=== PATIENT | male | born 1975 | race Caucasian/White ===

== ENCOUNTER → 2024-02-29 | Outpatient (CLI) | payer BC ==
--- NOTE | 2024-03-01 08:31 | HMCSR ---
APPROVED REPORT EXAM: Two-dimensional and M-mode echocardiogram with Doppler and color Doppler. INDICATION ICD: R01.1 Cardiac murmur, unspecified 2D Dimensions RVDd3.7 cmLVEF(%)60.3 (>50%)LVED Vol(simp.)129.0 mL IVSd1.0 (0.7-1.1cm)FS(%)32 %LVES Vol(simp.)58.0 mL LVDd4.5 (3.8-5.6cm)Ao Root(2D)3.0 (2.0-3.7cm)LVEF(%, simp.)55 % PWd1.0 (0.7-1.1cm)LVOT diam2.3 (1.8-2.4cm)LA ESV INDEX (BP)30.80 mL/m2 LVDs3.0 (2.5-4.0cm)IVC diam2.3 cm Aortic Valve AoV Vmax1.4 m/Tay Peak GR7.5 mmHgLVOT Vmax1.2 m/s AoV VTI0.3 mAo Mean GR3.9 mmHgLVOT VTI0.25 m MADELYN (VMAX)3.4 cm2AVA (VTI) 3.4 cm2 Mitral Valve MV E Vmax78.4 cm/sDECEL Cghc443 ms MV A Vmax56.1 cm/sP 1/2 T50 ms E/A ratio1.4MVA (PHT)4.4 cm2 TDI E/E' Medial8.0E/E' Lateral7.2 Pulmonary Valve PV Vmax1.0 m/sPV VTI0.37 mPV Mean GR5 mmHg PV Peak GR9.7 mmHg Tricuspid Valve TR Vmax2.3 m/sRAP (EST) 8 nuMuXBDL28.0 mmHg TR Peak GR22.0 mmHg Left Ventricle Left ventricular cavity size is normal. There is normal LV segmental wall motion. There is normal lef t ventricular wall thickness. LVEF is 55-60%. Left ventricular filling pattern is normal for age. Right Ventricle The right ventricle is normal size. The right ventricular systolic function is normal. Atria The left atrium size is normal. The atrial septum is aneurysmal. The right atrium is mildly dilated. Aortic Valve Aortic valve is trileaflet. Aortic valve leaflets are sclerotic but open well. No aortic regurgitatio n is present. There is no aortic valvular stenosis. Mitral Valve Mitral valve leaflets appear normal. There is no mitral valve regurgitation noted. There is no mitral valve stenosis. Tricuspid Valve The tricuspid valve leaflets appear normal. There is trace tricuspid regurgitation. Right ventricular systolic pressure is estimated at 30 mmHg. Pulmonic Valve The pulmonic valve leaflets are thin and pliable; valve motion is normal. There is no pulmonic valvul ar regurgitation. Great Vessels The aortic root is normal in size. IVC is dilated and collapses >50% with inspiration. Pericardium No pericardial effusion. Conclusion LVEF is 55-60%.
== END | disposition home or self-care (01) ==
LOC: SHCH 15:14
PROVIDERS: ATTEND Internal Medicine Cardiovascular Disease
DX: I35.8 Other nonrheumatic aortic valve disorders (principal); R01.1 Cardiac murmur, unspecified
CPT/HCPCS: 93306